=== PATIENT | female | born 1945 | race Caucasian/White ===

== ENCOUNTER → 2018-01-09 14:40 | Outpatient (CLI) | payer MEDICARE, OTHER, SELFPAY | PROVIDERS: Visit Provider Otolaryngology | DX: H66.002 Acute suppurative otitis media without spontaneous rupture of ear drum, left ear (principal) | CPT/HCPCS: 87070; 87075; 87077; 87186; 87205 ==

== ENCOUNTER 2018-10-03 11:50 | Day surgery (SDC) | payer MEDICARE, OTHER, SELFPAY ==
[2018-10-03] VITALS (7 sets, daily range): BP systolic 128–147; BP diastolic 64–83; PULSE 59–86; RESP 16–18; TEMP 36.5–37; O2SAT 93–100; BMI 21.7
--- NOTE | 2018-10-03 12:05 | EKG12_ITS ---
Test Reason : PRE OP Blood Pressure : / mmHG Vent. Rate : 059 BPM Atrial Rate : 059 BPM P-R Int : 146 ms QRS Dur : 092 ms QT Int : 444 ms P-R-T Axes : 004 -02 005 degrees QTc Int : 439 ms Sinus bradycardia Nonspecific ST abnormality Abnormal ECG Confirmed by MARIA ISABEL ORTEGA, NEWTON ([id number]), web editor KYAW LOWE ([id number]) on 10/08/2018 1:41:17 PM Referred By: James Aponte Confirmed By:NEWTON NICOLAS MD
[2018-10-03 12:39] LABS: Hematocrit 37.9 % (37-47); Hemoglobin 12.6 g/dl (12.0-15.0); Mean Corp Hgb Conc 33.2 g/gl (32-36); Mean Corpuscular Hgb 33.1 pg (27.0-32.0); Mean Corpuscular Volume 99.5 fL (81-99); Mean Platelet Vol. 9.2 fl (6.2-12.0); Platelet Count 255 K/mm3 (150-450); RBC Distribution Width CV 13.1 % (11.6-14.6); RBC Distribution Width SD 47.7 fl (35.1-43.9); Red Blood Count 3.81 M/mm3 (4.2-5.4); White Blood Count 4.2 K/mm3 (4.4-11.0)
[2018-10-03 12:47] LABS: Scan Indicated on CBC? Y/N NO
[2018-10-03 12:57] LABS: Anion Gap 6 (5-15); BUN 9 mg/dL (7-18); BUN/Creat Ratio 11.7 RATIO (10-20); Calcium,Total 8.3 mg/dL (8.5-10.1); Chloride 110 mmol/L (98-107); Creatinine, Serum 0.77 mg/dL (0.55-1.02); EST Glomerular Filtration Rate 79 mL/min (>60); Est Glom Filt Rate - Afr Amer 95 mL/min (>60); Estimated Creatinine Clearance 44.56 ml/min; Glucose 98 mg/dL (74-106); Potassium 3.8 mmol/L (3.5-5.1); Sodium Level 144 mmol/L (136-145); Thyroid Stim Hormone (TSH) 0.44 uIU/mL (0.358-3.74)
[2018-10-03] MEDS: Bacitracin 500 UNITS/GM PACKET (15:04)
--- NOTE | 2018-10-03 16:06 | OP.PCM_ITS ---
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 Most recently this cultured positive for MRSA. This is responded well to antibiotic therapy however imaging showed ongoing fluid within the mastoid cavity suggesting chronic mastoiditis in the above her surgery was offered in hopes of improvement of the infection and drainage as well as possible improvement of her conductive hearing loss. The risks, alternatives, potential complications, and benefits were discussed at length and any questions answered to the patient and/or caregiver's satisfaction. Witnessed informed consent was obtained in the office, and the patient and/or caregiver was agreeable to proceed. Procedure went as follows: The patient was identified in the preoperative holding brought to the operating room and was placed under general anesthesia and intubated. The operative ear had been site marked preoperatively in accordance with the office notes patient exam and history. The patient was then placed under general anesthesia and the left ear prepped and draped in usual s terile fashion. The facial nerve monitoring electrodes were then placed in the confirmed to be operational in accordance with the manufactures directions. The planned postauricular incision site for fascial graft harvest was then injected with 1% lidocaine with 100,000 epinephrine for a total of 4 mL. Through a #6 otic speculum the operative microscope was brought into the field and the external auditory canal and tympanic membrane visualized. The lateral canal wall was then injected with 1% lidocaine with 100,000 epinephrine for a total of 0.5 cc. Using a sickle knife the edge of the perforation was then sharply resected and withdrawn from the ear canal with a cup forceps. Epinephrine soaked cotton balls and placed for hemostasis and attention turned to the fascial graft harvest and mastoidectomy. A 5 cm incision was then created a 15 blade scalpel posterior to the auricle at the previous injection site. The skin and subcutaneous tissues were then dissected and the posterior auricular muscle sharply transected. The subfascial plane was then widely developed any 2.5 x 2.5 centimeter portion of loose areolar tissue then harvested and set aside on a Ilan block for reconstruction of the tympanic membrane. Using monopolar cautery, an incision was then made along the temporal line and the descending limb carried down to the mastoid tip. The periosteum was then elevated with a periosteal elevator. Self-retaining retractor was then applied. A mastoidectomy was then carried out using serial burs starting with a #6 cutting bur followed by #4 ludivina. The mastoid cavity was widely opened into a single space anteriorly to the attic where good ventilation with the middle ear cleft was established. Upon completion the area was copiously irrigated saline solution to remove any bone dust and suctioned clear. A postauricular incision was then closed deeply with interrupted 3-0 Vicryl sutures followed by running 5-0 Monocryl to the skin. Attention was then turned to reconstruction of the tympanic membrane. The operative microscope was replaced and through an otic speculum the middle ear cleft filled with Gelfoam packing material after removal of the epinephrine soaked cotton balls. The previously harvested graft tissue was then placed in an overlay fashion ensuring that it completely covered the tympanic membrane perforation. Additional Gelfoam material applied laterally to hold the tissue graft in place. Bacitracin ointment was then applied to secure the material and the patient then cleaned of prep solution and the facial nerve monitoring electr odes removed. The patient was then returned to anesthesia, revived and extubated without complication having tolerated the procedure well. Type of Anesthesia:: General Anesthesiologist: Kvng Wang Special Medications: none Specimen's removed: none Drains: none Estimated Blood Loss (mL): 0 mL Fluids Replaced: 1200 mL Grafts/Implants Used: fascia graft - Complications none - Admit VTE Documentation VTE Present on Admission: No VTE Mechan Device Prophylaxis: SCD's VTE Pharm Prophylaxis ordered?: No
--- NOTE | 2018-10-03 16:08 | DCINST_ITS ---
- Discharge Diagnoses Current Active Problems: Current Active and Chronic Problems Chronic mastoiditis of left side (Chronic) Central perforation of tympanic membrane of left ear (Chronic) You will use the following diet at home:: Regular Discharge Activity: Return to Normal Activity Call your doctor if your incision/area has: Sudden Increased Bleeding, Swelling at the incision site Call your doctor if you observe: Fever of 101 or Higher, Uncontrolled pain Cleanse incision/area with: Do not get Incision Wet Allergies/Adverse Reactions: Allergies No Known Allergies Allergy (Verified 10/03/18 12:35) Medications to take at Discharge Calcium Carbonate/Vitamin D3 [Calcium 500 mg-Vit D3 600 Unit] 2 each PO DAILY 10/01/18 Cyanocobalamin (Vitamin B-12) [Vitamin B-12] 1,000 mcg PO DAILY 10/01/18 Fluticasone 0.05% [Flonase Nasal [place]] 1 spray NASAL DAILY 10/01/18 Ibandronate Sodium [Boniva] 150 mg PO Q30D 10/01/18 Levothyroxine [Synthroid] 75 mcg PO DAILY 10/01/18 Metoprolol(XL)Succ [Toprol Xl (Beta Teri)] 25 mg PO DAILY 10/01/18 Omeprazole [Prilosec] 20 mg PO DAILY PRN 10/01/18 Orders to be completed after discharge: Basic Metabolic Profile (BMP) Time Frame: 10/03/18, Location: Laboratory CBC-Complete Blood Cnt No Diff Time Frame: 10/03/18, Location: Laboratory Thyroid Stim Hormone (TSH) Time Frame: 10/03/18, Location: Laboratory Primary Care Physician: Chace Branch MD [Primary Care Provider] - Test Results: Test results from this visit will be discussed in further detail at your follow- up appointment, if applicable. Please Follow Up With: James Aponte MD When: 1 week
[2018-10-03] MEDS: Ibuprofen 200 MG Tablet 400 MG PO (17:11)
[2018-10-03] MEDS: Acetaminophen 325 MG Tablet 650 MG PO (17:28)
== END 2018-10-03 18:15 | disposition home or self-care (01) ==
LOC: SDC 11:52 → ACINP 11:54 → AC 11:55
PROVIDERS: Family Provider Family Medicine; PCP Family Medicine; Referring Provider Otolaryngology; Visit Provider Otolaryngology
PROC: (CPT 69641; principal; 2018-10-03 13:15)
DX: H70.12 Chronic mastoiditis, left ear (principal); H72.02 Central perforation of tympanic membrane, left ear; H90.A32 Mixed conductive and sensorineural hearing loss, unilateral, left ear with restricted hearing on the contralateral side; B95.62 Methicillin resistant Staphylococcus aureus infection as the cause of diseases classified elsewhere; I10 Essential (primary) hypertension; E06.9 Thyroiditis, unspecified; K21.9 Gastro-esophageal reflux disease without esophagitis; F17.200 Nicotine dependence, unspecified, uncomplicated; Z79.899 Other long term (current) drug therapy
CPT/HCPCS: 69641; 36415; 80048; 84443; 85027; 93005; J7120; J2405; J3490

== ENCOUNTER → 2021-03-02 16:51 | Outpatient (CLI) | payer MEDICARE, OTHER, SELFPAY | PROVIDERS: PCP Family Medicine; Visit Provider Otolaryngology | DX: H66.003 Acute suppurative otitis media without spontaneous rupture of ear drum, bilateral (principal) | CPT/HCPCS: 87070; 87075; 87077; 87186; 87205 ==